=== PATIENT | female | born 1995 | race Caucasian/White ===

== ENCOUNTER 2020-06-27 02:16 | Emergency (ER) | payer MEDICAID ==
[~2020-06-27] VITALS: Ht 165.1 cm; Wt 116.6 kg
[2020-06-27 02:22] VITALS: Ht 165.1 cm; Wt 116.6 kg
[2020-06-27 03:10] LABS: BASOPHIL % 0.5 % (0.2-1.3); PLATELET COUNT 242 x10^3mcL (179-408); RED CELL DISTRIBUTION WIDTH 14.8 % (12.3-17.7)
[2020-06-27 03:14] LABS: microscopic required? YES; urine erythrocyte 1+ (NEGATIVE)
[2020-06-27 03:25] LABS: ALKALINE PHOSPHATASE 174 U/L (46-116); ALT/SGPT 62 U/L (14-59); AST/SGOT 19 U/L (15-37); BILIRUBIN TOTAL 0.25 mg/dL (0.20-1.00); CALCIUM 9.5 mg/dL (8.5-10.1); CARBON DIOXIDE 26.4 mmol/L (21-32); CHLORIDE SERUM 94 mmol/L (98-107); CHOLESTEROL 162 mg/dL (<200); CHOLESTEROL/HDL RATIO 3.3; GFR1 > 60 mL/min; HDL CHOLESTEROL 49 mg/dL (40-60); LIPASE 177 IU/L (73-393); POTASSIUM SERUM 3.8 mmol/L (3.5-5.1); SODIUM SERUM 132 mmol/L (136-145); TOTAL PROTEIN, SERUM 8.8 g/dL (6.4-8.2); TRIGLYCERIDES 165 mg/dL (<150)
[2020-06-27 03:26] LABS: GLUCOSE SERUM 560 mg/dL (74-106)
[2020-06-27 03:31] LABS: T3 TOTAL 1.34 ng/mL
[2020-06-27 03:34] LABS: FREE T4 1.35 ng/dL (0.76-1.46); FREE THYROXINE INDEX 3.4 ug/dL (1.4-4.5); T4(THYROXINE) 9.1 ug/dL (4.7-13.3)
[2020-06-27] MEDS ORDERED: METFORMIN500 M1 GT (04:39)
[2020-06-27 05:43] VITALS: BP 121/67
== END 2020-06-27 05:43 | disposition home or self-care (01) ==
LOC: ED 02:16
PROVIDERS: Specialist
DX: E11.9 Type 2 diabetes mellitus without complications (principal); E66.01 Morbid (severe) obesity due to excess calories
CPT/HCPCS: 36600; 82962; 84439; J1815; J7030